=== PATIENT | male | born 1970 | race Caucasian/White ===

== ENCOUNTER 2024-09-26 22:37 | Emergency (ER) | payer OTHER ==
--- NOTE | 2024-09-26 23:27 | ED ---
General Adult HPI - General Chief complaint: Syncope Stated complaint: Syncope Time Seen by Provider: 09/26/24 22:50 Source: EMS Mode of arrival: EMS Limitations: no limitations - History of Present Illness Initial comments: Patient is a pleasant 53 y/o gentleman presenting today for syncope x 2. Hx provided by pt's sister, girlfriend and pt. State that they were at a concert tonight when patient began feeling nauseous and sweaty and like he needed to have a bowel movement. He went to sit in the restaurant portion of the facility they were at which was, less crowded. His girlfriend found him sitting on a table looking pale and sweaty. He went to stand up and lost consciousness. His sister eased him to the ground, he did briefly hit his head on the chair but not with much of an impact in the EC the ground. Patient had already lost conscious ness by the time he ate his head. He was unconscious for maybe about 30 to 40 seconds, he woke up and stated that he felt fine, another gentleman went to help him stand up and upon trying to stand again he had another episode of syncope. Again was unconscious about 30 to 40 seconds. Patient's girlfriend states that somebody on the scene said his heart rate felt slow and he looked pale and felix around his lips at the time. He did not have any seizure-like activity. The patient currently denies dizziness, changes in vision, focal numbness or weakness, slurred speech, chest pain, shortness of breath, abdominal pain, recent episodes of vomiting or diarrhea, melena or hematochezia. Patient was recently admitted to [facility] this past weekend for very similar episode, while he was in the ICU visiting his cousin he began to felt dizzy and lightheaded, and briefly lost consciousness. He was taken to the emergency department downstairs and admitted to the hospital, and ultimately discharged with a Holter monitor after being told most likely was vasovagal syncope. Patient states a similar sort happened about 15 years ago when he was with his father who is receiving chemotherapy at the time. Patient sister states that she has a history of SVT and they do have a male cousin that in his 20s due to an unknown cause. Patient is not on blood thinners, he is a non-smoker, no history of cancer, no hormone replacement therapy, no recent travel or surgery. Was hospitalized for about 2 days last weekend. No history of PE/DVT. No fevers or chills. - Related Data Allergies Allergy/AdvReac Type Severity Reaction Status Date / Time No Known Allergies Allergy Verified 09/26/24 22:52 Review of Systems ROS Statement: Those systems with pertinent positive or pertinent negative responses have been documented in the HPI. ROS Other: All systems not noted in ROS Statement are negative. Past Medical History Past Medical History: Hypertension History of Any Multi-Drug Resistant Organisms: None Reported Smoking Status: Never smoker Past Alcohol Use History: None Reported Past Drug Use History: None Reported General Exam - General Exam Comments Initial Comments: PE: CONSTITUTIONAL: No apparent distress, well appearing SKIN: Warm, dry, no jaundice, hives or petechiae EYES: Pupils are equally round, extraocular movements intact without nystagmus, clear conjunctiva, non-icteric sclera HENT: Normocephalic, atraumatic, moist mucus membranes, oropharynx clear without exudates NECK: , Full range of motion, normal appearance PULMONARY: Clear to auscultation without wheezes, rhonchi, or rales, normal excursion, no accessory muscle use and no stridor CARDIOVASCULAR: Regular rate, rhythm, normal S1 and S2. No appreciated murmurs, rubs or gallops. Strong radial pulses with intact distal perfusion. No lower extremity edema GASTROINTESTINAL: Soft, active bowel sounds throughout, non-tender, non- distended, no palpable masses, no rebound or guarding. No hepatosplenomegaly MUSCULOSKELETAL: Extremities have no gross deformity, no edema, redness, or swelling. No calf swelling NEUROLOGIC:_a/o x 3, GCS 15, normal mentation and speech. Moves all extremities x 4 without motor or sensory deficit PSYCHIATRIC:_normal mood and affect, thought process is clear and linear Limitations: no limitations Course Vital Signs 09/26/24 09/26/24 09/26/24 22:43 23:25 23:26 Temperature 98.2 F Pulse Rate 88 Pulse Rate [ 101 H Left Sitting Pulse Oximetery ] Pulse Rate [ Left Standing Pulse Oximetery ] Pulse Rate [ 89 Left Supine Pulse Oximetery ] Respiratory 19 Rate Blood Pressure 114/79 Blood Pressure 116/84 [Right Arm Sitting] Blood Pressure [Right Arm Standing] Blood Pressure 112/73 [Right Arm Supine] O2 Sat by Pulse 99 Oximetry 09/26/24 09/27/24 09/27/24 23:27 00:37 01:01 Temperature Pulse Rate 88 90 Pulse Rate [ Left Sitting Pulse Oximetery ] Pulse Rate [ 106 H Left Standing Pulse Oximetery ] Pulse Rate [ Left Supine Pulse Oximetery ] Respiratory 15 15 Rate Blood Pressure 117/83 126/79 Blood Pressure [Right Arm Sitting] Blood Pressure 117/86 [Right Arm Standing] Blood Pressure [Right Arm Supine] O2 Sat by Pulse 98 97 Oximetry 09/27/24 02:18 Temperature 98.1 F Pulse Rate 92 Pulse Rate [ Left Sitting Pulse Oximetery ] Pulse Rate [ Left Standing Pulse Oximetery ] Pulse Rate [ Left Supine Pulse Oximetery ] Respiratory 16 Rate Blood Pressure 121/84 Blood Pressure [Right Arm Sitting] Blood Pressure [Right Arm Standing] Blood Pressure [Right Arm Supine] O2 Sat by Pulse 97 Oximetry EKG Findings - EKG Comments: EKG Findings:: Sinus rhythm, rate [address] interval 163 ms QT/QTc 393/440 ms, left axis deviation, right bundle branch block present, no ST elevations or depressions, no delta waves or Brugada pattern, Medical Decision Making - Medical Decision Making Was pt. sent in by a medical professional or institution (, PA, LUNCH TRUCK OPERATOR, urgent ca re, hospital, or penitentiary...) When possible be specific @ -No Did you speak to anyone other than the patient for history (EMS, parent, family, police, friend...)? What history was obtained from this source @ -Sister and girlfriend who witnessed patient syncopal episode today. Provided vast majority of history as noted in HPI, sister notes that she has a history of SVT and they have a cousin who in his 20s from an unknown cause. Additionally I contacted "[employer]", the [employer] that patient's Holter monitors through and spoke with customer service officer Kalia, he reviewed patient's reports from today and reports patient is been in a sinus rhythm or has sinus tachycardia throughout the day today, max heart rate 102 bpm, that occurred between 9 and 10 PM. No episodes of V. tach. Did you review nursing and triage notes (agree or disagree)? Why? @ -I reviewed nursing and triage notes Were old charts reviewed (outside hosp., previous admission, EMS record, old EK G, old radiological studies, urgent care reports/EKG's, penitentiary records)? Report findings @ -Medical records reviewed- no prior records available for review Differential Diagnosis (chest pain, altered mental status, abdominal pain women, abdominal pain men, vaginal bleeding, weakness, fever, dyspnea, syncope, headache, dizziness, GI bleed, back pain, seizure, CVA, palpatations, mental health, musculoskeletal)? @Differential Syncope: Valvular disease, hypertrophic cardiomyopathy, pulmonary embolism, tamponade, arrythmia, ACS, hypovolemia, hemorrhage,anemia, syncope seizure, hypoglycemia, this is not meant to be an all-inclusive list. EKG interpreted by me (3pts min.). @ -As above X-rays interpreted by me (1pt min.). @I personally reviewed CXR, pt appears to have mild cardiomegaly, no pneumothorax, agree with radiologist interpretation CT interpreted by me (1pt min.). @ -None done U/S interpreted by me (1pt. min.). @ -None done What testing was considered but not performed or refused? (CT, X-rays, U/S, labs)? Why? @ -None What meds were considered but not given or refused? Why? @ -None Did you discuss the management of the patient with other professionals (professionals i.e. , PA, LUNCH TRUCK OPERATOR, lab, RT, psych nurse, social media campaign manager, chute builder, teacher, senior credit officer, case repairer)? Give summary @ -No Was smoking cessation discussed for >3mins.? @ -No Was critical care preformed (if so, how long)? @ -No Were there social determinants of health that impacted care today? How? (Homel essness, low income, unemployed, alcoholism, drug addiction, transportation, low edu. Level, literacy, decrease access to med. care, fdc, rehab)? @ -No Was there de-escalation of care discussed even if they declined (Discuss DNR or withdrawal of care, Hospice)? @ -No What co-morbidities impacted this encounter? (DM, HTN, Smoking, COPD, CAD, Cancer, CVA, ARF, Chemo, Hep., AIDS, mental health diagnosis, sleep apnea, morbid obesity)? @HTN Was patient admitted / discharged? Hospital course, mention meds given and route, prescriptions, significant lab abnormalities, going to OR and other pertinent info. @ -Discharged -this is a pleasant-53 year-old gentleman presenting today for 2 syncopal episodes that occurred prior to arrival. History of similar.Vital signs within acceptable limits on arrival, no hypotension or tachycardia. Patient is well-appearing on assessment. He has no focal neurologic deficits, cardiopulmonary exam is unremarkable. It appears patient has had an extensive workup recently for similar episode that we will recheck labs, obtain a D-dimer EKG, orthostatic vital signs. Small bolus IV fluids be ordered as patient is on Lasix so do not want to fluid overload the patient. Labs and imaging reviewed. Blood glucose 68 on CMP. Otherwise grossly within normal limits. Additional abnormal values not concerning for acute pathology related to presenting complaint. X-ray does appear to show cardiomegaly, otherwise no gross consolidations pleural effusions or pneumothorax. D-dimer 0.17. Pt does have a signficant family history of a cousin that in his 20s however his family is unsure why as they never had any type of investigation done as to why he passed. This was taken into consideration during w/u of pt however Holter monitor did not detect any arrythmia during pt's episodes of syncope tonight. Discussed with patient and sister findings thus far. Given patient has a Holter monitor on currently that has shown sinus tachycardia with a max heart rate of 102 during these episodes without lethal arrhythmia, EKG is reassuring, labs are reassuring and patient has already had extensive workup at another facility earlier this week as well as follow-up with book or script editor and PCP, we discussed admission for observation versus discharge home. Patient was comfortable discharge at this point. He was advised to follow up with his PCP and book or script editor as soon as possible regarding today's visit. In my medical judgment there is currently no evidence of an immediate life- threatening or surgical condition. Discharge is therefore indicated at this time. Discharge treatment instructions, follow up instructions, and appropriate emergency department return precautions were discussed with the patient and/or medical decision maker. Patient and/or medical decision maker expressed understanding of and agreed with the treatment plan, follow up instructions, and emergency department return precaution. All patient's and/or medical decision maker's questions were answered. The patient was advised that a small risk still exists that a serious condition could develop and was therefore instructed to return to the ED for any changes in symptoms, persistent symptoms, inability to obtain proper follow-up or for any further concerns. Patient received verbal and written instructions for this condition. Undiagnosed new problem with uncertain prognosis? @ -No Drug Therapy requiring intensive monitoring for toxicity (Heparin, Nitro, Insul in, Cardizem)? @ -No Were any procedures done? @ -No Diagnosis/symptom? @Syncope Acute, or Chronic, or Acute on Chronic? Acute Uncomplicated (without systemic symptoms) or Complicated (systemic symptoms)? Uncomplicated Side effects of treatment? @ -No Exacerbation, Progression, or Severe Exacerbation? @ -No Poses a threat to life or bodily function? How? (Chest pain, USA, LA, pneumonia, PE, COPD, DKA, ARF, appy, cholecystitis, CVA, Diverticulitis, Homicidal, Suicidal, threat to staff... and all critical care pts) @ -No - Lab Data Result diagrams: 09/26/24 23:31 09/26/24 23:31 Lab Results 09/26/24 09/26/24 09/26/24 Range/Units 23:31 23:31 23:31 WBC 9.9 (3.8-10.6) k/uL RBC 5.14 (4.30-5.90) m/uL Hgb 15.2 (13.0-17.5) gm/dL Hct 44.6 (39.0-53.0) % MCV 86.8 (80.0-100.0) fL MCH 29.6 (25.0-35.0) pg MCHC 34.1 (31.0-37.0) g/dL RDW 12.5 (11.5-15.5) % Plt Count 370 (150-450) k/uL MPV 7.3 Neutrophils % 83 % Lymphocytes % 10 % Monocytes % 5 % Eosinophils % 1 % Basophils % 0 % Neutrophils # 8.2 H (1.3-7.7) k/uL Lymphocytes # 1.0 (1.0-4.8) k/uL Monocytes # 0.5 (0-1.0) k/uL Eosinophils # 0.1 (0-0.7) k/uL Basophils # 0.0 (0-0.2) k/uL PT 10.2 (10.0-12.5) sec INR 0.9 (<1.2) APTT 22.5 (22.0-30.0) sec D-Dimer <0.17 (<0.60) mg/L FEU Sodium 138 (137-145) mmol/L Potassium 3.5 (3.5-5.1) mmol/L Chloride 104 (98-107) mmol/L Carbon Dioxide 21 L (22-30) mmol/L Anion Gap 13 mmol/L BUN 13 (9-20) mg/dL Creatinine 1.14 (0.66-1.25) mg/dL Est GFR (CKD-EPI)AfAm 84 (>60 ml/min/1.73 sqM) Est GFR (CKD-EPI)NonAf 73 (>60 ml/min/1.73 sqM) Glucose 68 L (74-99) mg/dL POC Glucose (mg/dL) (70-110) mg/dL POC Glu Cabin Service Agent ID Calcium 9.8 (8.4-10.2) mg/dL Magnesium 2.2 (1.6-2.3) mg/dL Total Bilirubin 0.9 (0.2-1.3) mg/dL AST 22 (17-59) U/L ALT 14 (4-49) U/L Alkaline Phosphatase 62 (38-126) U/L Troponin I (0.000-0.034) ng/mL Total Protein 7.3 (6.3-8.2) g/dL Albumin 4.5 (3.5-5.0) g/dL 09/26/24 09/26/24 09/27/24 Range/Units 23:31 23:43 01:50 WBC (3.8-10.6) k/uL RBC (4.30-5.90) m/uL Hgb (13.0-17.5) gm/dL Hct (39.0-53.0) % MCV (80.0-100.0) fL MCH (25.0-35.0) pg MCHC (31.0-37.0) g/dL RDW (11.5-15.5) % Plt Count (150-450) k/uL MPV Neutrophils % % Lymphocytes % % Monocytes % % Eosinophils % % Basophils % % Neutrophils # (1.3-7.7) k/uL Lymphocytes # (1.0-4.8) k/uL Monocytes # (0-1.0) k/uL Eosinophils # (0-0.7) k/uL Basophils # (0-0.2) k/uL PT (10.0-12.5) sec INR (<1.2) APTT (22.0-30.0) sec D-Dimer (<0.60) mg/L FEU Sodium (137-145) mmol/L Potassium (3.5-5.1) mmol/L Chloride (98-107) mmol/L Carbon Dioxide (22-30) mmol/L Anion Gap mmol/L BUN (9-20) mg/dL Creatinine (0.66-1.25) mg/dL Est GFR (CKD-EPI)AfAm (>60 ml/min/1.73 sqM) Est GFR (CKD-EPI)NonAf (>60 ml/min/1.73 sqM) Glucose (74-99) mg/dL POC Glucose (mg/dL) 96 128 H (70-110) mg/dL POC Glu Cabin Service Agent ID Kylee Reynolds Calcium (8.4-10.2) mg/dL Magnesium (1.6-2.3) mg/dL Total Bilirubin (0.2-1.3) mg/dL AST (17-59) U/L ALT (4-49) U/L Alkaline Phosphatase (38-126) U/L Troponin I <0.012 (0.000-0.034) ng/mL Total Protein (6.3-8.2) g/dL Albumin (3.5-5.0) g/dL Disposition Clinical Impression: Vasovagal syncope Disposition: HOME SELF-CARE Condition: Stable Instructions (If sedation given, give patient instructions): Syncope (ED) Additional Instructions: Every disease is a spectrum and a small chance still exists that a serious condition could develop, for this reason, please monitor yourself closely for new, changing or worsening symptoms, symptoms that persist beyond 48 hours, recurrence of symptoms, severe chest pain, shortness of breath, swelling in your legs, severe headache, strokelike symptoms such as numbness, weakness, slurred speech fever, inability to tolerate/keep down fluids or your medications, inability to follow up with outpatient providers as instructed and should you experience these symptoms or should you have any further concerns for your wellbeing please return to the ED or call 911 immediately. [facility] law states that you are unable to drive or operate heavy machinery for 6 months after seizure or syncopal event. Please follow-up with your PCP for clearance to return to driving. PLEASE call your primary care physician as soon as possible to arrange / discuss plan for followup appointment. Appointment in the next 1-3 days is strongly encouraged if possible. PLEASE let us know here before you leave if there is anything further we can do to be of any assistance. Take care and feel Better! Is patient prescribed a controlled substance at d/c from ED?: No Referrals: Nonstaff,Physician [REFERRING] - 1-2 days
[2024-09-26] MEDS: SODIUM CHLORIDE 0.9% 500 ML 500 ML IV STA (23:42)
[2024-09-26 23:45] LABS: Glucose,Whole Blood 96 mg/dL (70-110)
[2024-09-27 00:05] LABS: ALT 14 U/L (4-49); AST 22 U/L (17-59); African American GFR (CKD) 84 (>60 ml/min/1.73 sqM); Albumin 4.5 g/dL (3.5-5.0); Alkaline Phosphatase 62 U/L (38-126); Anion Gap 13 mmol/L; Blood Urea Nitrogen 13 mg/dL (9-20); Calcium 9.8 mg/dL (8.4-10.2); Carbon Dioxide 21 mmol/L (22-30); Chloride 104 mmol/L (98-107); Glucose 68 mg/dL (74-99); Magnesium 2.2 mg/dL (1.6-2.3); Non-African American GFR(CKD) 73 (>60 ml/min/1.73 sqM); Potassium 3.5 mmol/L (3.5-5.1); Sodium 138 mmol/L (137-145); Total Bilirubin 0.9 mg/dL (0.2-1.3); Total Protein 7.3 g/dL (6.3-8.2)
[2024-09-27 00:19] LABS: INR 0.9 (<1.2); Partial Thromboplastin Time 22.5 sec (22.0-30.0); Prothrombin Time 10.2 sec (10.0-12.5)
[2024-09-27 00:50] LABS: Basophils % (A) 0 %; Eosinophils # (A) 0.1 k/uL (0-0.7); Eosinophils % (A) 1 %; HCT 44.6 % (39.0-53.0); HGB 15.2 gm/dL (13.0-17.5); Lymphocytes % (A) 10 %; MCH 29.6 pg (25.0-35.0); MCHC 34.1 g/dL (31.0-37.0); MCV 86.8 fL (80.0-100.0); Mean Platelet Volume 7.3; Monocytes # (A) 0.5 k/uL (0-1.0); Monocytes % (A) 5 %; Neutrophils # (A) 8.2 k/uL (1.3-7.7); Neutrophils % (A) 83 %; Platelet Count 370 k/uL (150-450); RBC 5.14 m/uL (4.30-5.90); RDW 12.5 % (11.5-15.5); WBC 9.9 k/uL (3.8-10.6)
[2024-09-27 01:52] LABS: Glucose,Whole Blood 128 mg/dL (70-110)
[2024-09-27 02:21] VITALS: BP 121/84; PULSE 92; RESP 16; TEMP 98.1
--- NOTE | 2024-09-27 02:31 | XR ---
EXAM: XR Chest, 2 Views CLINICAL HISTORY: ITS.REASON XR Reason: syncope TECHNIQUE: Frontal and lateral views of the chest. COMPARISON: No relevant prior studies available. FINDINGS: Lungs: No consolidation or mass. Pleural space: No effusion. Heart: cardiomegaly. Bones/joints: No acute findings. IMPRESSION: No acute cardiopulmonary process.
== END 2024-09-27 02:21 | disposition home or self-care (01) ==
LOC: EC 22:37
DX: R55 Syncope and collapse (principal); I10 Essential (primary) hypertension
CPT/HCPCS: 36415; 71046; 80053; 83735; 84484; 85025; 85379; 85610; 85730; 93005; 99285